=== PATIENT | male | born 1950 | race Caucasian/White ===

== ENCOUNTER 2016-07-12 13:10 | Inpatient (IN) | payer OTHER ==
[2016-07-12 14:23] VITALS: BMI 22.0
--- NOTE | 2016-07-12 16:39 | HP ---
COWS - Scale Resting Pulse: 0= [place] 80 or Below Sweatin= Chills/Flushing Restless Observation: 1= Difficult to Sit Still Pupil Size: 0= Normal to Room Light Bone or Joint Aches: 1= Mild Discomfort Runny Nose/ Eye Tearin= Runny Nose/Eyes GI Upset > 30mins: 3= Vomiting/Diarrhea Tremor Observation: 2= Slight Tremor Visible Yawning Observation: 0= None Anxiety or Irritability: 2=Irritable/Anxious Goose Flesh Skin: 3=Piloerection COWS Score: 15 CIWA Score - CIWA Score Nausea/Vomitin Muscle Tremors: 4-Moderate,w/Arms Extend Anxiety: 4-Mod. 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 Loss EENT: reports: Dental Problems (full upper partial lower - adhesive) Respiratory: reports: No Symptoms reported Cardiac: reports: No Symptoms Reported GI: reports: Diarrhea, Nausea, Poor Appetite, Poor Fluid Intake, Vomiting, Abdominal cramping : reports: No Symptoms Reported Musculoskeletal: reports: Back Pain, Joint Pain, Muscle Pain, Neck Pain Integumentary: reports: Change in Color (legs iv opiate) Neuro: reports: Tremors Endocrine: reports: Intolerance to Cold Hematology: reports: No Symptoms Reported Psychiatric: reports: Judgement Intact, Mood/Affect Appropiate Other Systems: Reviewed and Negative Patient History - Patient Medical History Hx Anemia: No Hx Asthma: No Hx Chronic Obstructive Pulmonary Disease (COPD): No Hx Cancer: No Hx Cardiac Disorders: No Hx Congestive Heart Failure: No Hx Hypertension: No Hx Hypercholesterolemia: No Hx Pacemaker: No HX Cerebrovascular Accident: No Hx Seizures: No Hx Dementia: No Hx Diabetes: No Hx Gastrointestinal Disorders: Yes (esophageal ulcer repaired 2006) Hx Liver Disease: No Hx Genitourinary Disorders: No Hx Sexually Transmitted Disorders: No Hx Renal Disease (ESRD): No Hx Thyroid Disease: No Hx Human Immunodeficiency Virus (HIV): No Hx Hepatitis C: Yes (treated) Hx Depression: No Hx Suicide Attempt: No Hx Bipolar Disorder: No Hx Schizophrenia: No - Patient Surgical History Past Surgical History: Yes Hx Neurologic Surgery: No Hx Cataract Extraction: No Hx Cardiac Surgery: No Hx Lung Surgery: No Hx Breast Surgery: No Hx Breast Biopsy: No Hx Abdominal Surgery: Yes (esophageal ulcer repaired 2006) Hx Appendectomy: Yes (25 years ago) Hx Cholecystectomy: Yes (2011) Hx Genitourinary Surgery: No Hx Orthopedic Surgery: No Anesthesia Reaction: No - PPD History Previous Implant?: Yes Documented Results: Negative w/o proof Implanted On Prior [facility] Admission?: No PPD to be Administered?: Yes - Smoking Cessation Smoking history: Current every day smoker Have you smoked in the past 12 months: Yes Aproximately how many cigarettes per day: 20 Cigars Per Day: 0 Hx Chewing Tobacco Use: No Initiated information on smoking cessation: Yes 'Breaking Loose' booklet given: 07/12/16 - Substance & Tx. History Hx Alcohol Use: No Hx Substance Use: Yes Substance Use Type: Heroin, Opiates, Tranquilizers - Substances Abused Heroin Route: Injection Frequency: Daily Amount used: 10 BAGS Age of first use: 40 Date of Last Use: 07/11/16 Alprazolam (Xanax) Route: Oral Frequency: Daily Amount used: 2MG Age of first use: 55 Date of Last Use: 07/11/16 Benzodiazepine (Klonopin) Route: Oral Frequency: Daily Amount used: 2MG Age of first use: 55 Date of Last Use: 07/11/[address] METHADONE Route: Oral Frequency: 3-6 times per week Amount used: 40 MG Age of first use: 40 Date of Last Use: 07/10/16 Family Disease History - Family Disease History Family Disease History: CA: Mother (), Other: Father () Other Family History: only child Admission Physical Exam S - Vital Signs Vital Signs: Vital Signs - 24 hr 07/12/16 14:22 Temperature 98.7 F Pulse Rate 61 Respiratory 18 Rate Blood Pressure 108/67 - Physical General Appearance: Yes: Appropriately Dressed, Mild Distress, Thin, Tremorous, Irritable, Sweating, Anxious HEENTM: Yes: Hearing grossly Normal, Normal ENT Inspection, Normocephalic, Normal Voice, Other (denture) Respiratory: Yes: Chest Non-Tender, Labored Respiration, No Respiratory Distress , No Accessory Muscle Use, Rhonchi, Wheezing, Hyperresonant Neck: Yes: Supple, Trachea in good position Breast: Yes: Breasts Symetrical Cardiology: Yes: Regular Rhythm, Regular Rate, S1, S2 Abdominal: Yes: Non Tender, Soft Genitourinary: Yes: Within Normal Limits Back: Yes: Normal Inspection Musculoskeletal: Yes: full range of Motion, Gait Steady, Back pain, Muscle Pain Extremities: Yes: Normal Range of Motion, Non-Tender, Tremors, Other (legs iv heroin) Neurological: Yes: Alert, Motor Strength 5/5, Normal Mood/Affect, Normal Response Integumentary: Yes: Warm, Track Hodges Lymphatic: Yes: Within Normal Limits - Diagnostic (1) Opioid dependence with withdrawal Current Visit: Yes Status: Acute (2) Sedative, hypnotic or anxiolytic dependence with withdrawal, uncomplicated Current Visit: Yes Status: Acute (3) Vomiting Current Visit: Yes Status: Acute Qualifiers: Vomiting type: unspecified Vomiting Intractability: intractable Nausea presence: with nausea Qualified Code(s): R11.2 - Nausea with vomiting, unspecified (4) Nicotine dependence Current Visit: Yes Status: Acute Qualifiers: Nicotine product type: cigarettes Substance use status: uncomplicated Qualified Code(s): F17.210 - Nicotine dependence, cigarettes, uncomplicated (5) Wears dentures Current Visit: Yes Status: Acute (6) Asthma Current Visit: Yes Status: Acute Qualifiers: Asthma severity: mild intermittent Asthma complication type: with status asthmaticus Qualified Code(s): J45.22 - Mild intermittent asthma with status asthmaticus (7) Weight loss Current Visit: Yes Status: Acute (8) Bronchitis Current Visit: Yes Status: Acute (9) History of cholecystectomy Current Visit: Yes Status: Resolved (10) History of appendectomy Current Visit: Yes Status: Resolved (11) History of esophageal surgery Current Visit: Yes Status: Resolved (12) Hepatitis C antibody test positive Current Visit: Yes Status: Acute Cleared for Admission [facility] - Detox or Rehab [facility] Level of Care: Medically Managed Detox Regimen/Protocol: Methadone/Valium [facility] Breath Alcohol Content Breath Alcohol Content: 0 Urine Drug Screen - Results Drug Screen Negative: No Urine Drug Screen Results: OPI-Opiates, BZO-Benzodiazepines, MTD-Methadone, OXY- Oxycodone
[2016-07-12] MEDS ORDERED: diazePAM 5 MG TABLET PO ONE (16:45)
[2016-07-12] MEDS ORDERED: MENTHOL/PHENOL 1 EACH UD MM PRN (16:45)
[2016-07-12] MEDS ORDERED: ACETAMINOPHEN 325 MG TABLET (FP) PO PRN (16:45)
[2016-07-12] MEDS ORDERED: MAG HYDROX/AL HYDROX/SIMETH 30 ML UNIT-DOSE CUP PO PRN (16:45)
[2016-07-12] MEDS ORDERED: MAGNESIUM CITRATE 300 ML BOTTLE PO PRN (16:45)
[2016-07-12] MEDS ORDERED: diphenhydrAMINE HCL 50 MG CAPSULE PO PRN (16:45)
[2016-07-12] MEDS ORDERED: LOPERAMIDE HCL 2 MG CAPSULE PO PRN (16:45)
[2016-07-12] MEDS ORDERED: guaiFENesin/D-METHORPHAN HB 10 ML UNIT-DOSE CUPS PO PRN (16:45)
[2016-07-12] MEDS ORDERED: IBUPROFEN 400 MG TABLET (FP) PO PRN (16:45)
[2016-07-12] MEDS ORDERED: P-EPHED 60MG/TRIPROLIDI 2.5MG TABLET PO PRN (16:45)
[2016-07-12] MEDS ORDERED: MAGNESIUM HYDROX 2400MG/30ML ORAL SUSPENSION 30 ML CUP PO PRN (16:45)
[2016-07-12] MEDS ORDERED: ONDANSETRON *ODT* 4 MG TABLET SL PRN (16:48)
[2016-07-12] MEDS ORDERED: ALBUTEROL SO4 2.5/IPRATROPIUM 0.5 INH SOL 3 ML VIAL.NEB. NEB PRN (17:28)
[2016-07-12] MEDS ORDERED: METHADONE HCL 10 MG TABLET (FOR DETOX USE ONLY) PO ONE ×2 (18:30→23:00)
[2016-07-12] MEDS: NICOTINE POLACRILEX 2 MG GUM BC PRN ×2 (19:50→22:19)
[2016-07-12] MEDS: BUDESONIDE/FORMETEROL FUMARATE 80/4.5 mcg INHALER IH SCH (22:15)
[2016-07-12] MEDS: THIAMINE HCL 100 MG TABLET (FP) PO SCH (22:15)
[2016-07-12] MEDS: diazePAM 5 MG TABLET PO SCH (22:16)
[2016-07-12 23:14] LABS: URINE APPEARANCE CLEAR; URINE BILIRUBIN NEGATIVE (NEGATIVE); URINE BLOOD NEGATIVE (NEGATIVE); URINE COLOR YELLOW; URINE GLUCOSE (UA) NEGATIVE (NEGATIVE); URINE KETONE NEGATIVE (NEGATIVE); URINE LEUK ESTERASE NEGATIVE (NEGATIVE); URINE NITRITE NEGATIVE (NEGATIVE); URINE PROTEIN NEGATIVE (NEGATIVE); URINE UROBILINOGEN NEGATIVE E.U./dl (0.2-1.0)
[2016-07-13] MEDS: diazePAM 5 MG TABLET PO SCH ×3 (05:31→22:14)
[2016-07-13] MEDS: CYCLOBENZAPRINE HCL 10 MG TABLET (FP) PO PRN ×3 (05:31→22:16)
[2016-07-13] MEDS: NICOTINE POLACRILEX 2 MG GUM BC PRN ×5 (07:26→20:54)
[2016-07-13] MEDS ORDERED: METHADONE HCL 10 MG TABLET (FOR DETOX USE ONLY) PO SCH (10:00)
[2016-07-13] MEDS: diazePAM 5 MG TABLET PO PRN ×2 (10:11→15:26)
[2016-07-13] MEDS: PRENATAL VITAMINS W/ FOLIC ACID TABLET (FP) PO SCH (10:11)
[2016-07-13] MEDS: BUDESONIDE/FORMETEROL FUMARATE 80/4.5 mcg INHALER IH SCH ×2 (10:12→22:14)
[2016-07-13] MEDS: NICOTINE 21 MG/24 HOURS TOPICAL PATCH TD SCH (10:12)
[2016-07-13 10:25] LABS: MCH 31.4 pg (25.7-33.7); MCHC 33.5 g/dl (32.0-35.9); MEAN CELL VOLUME 93.7 fl (80-96); MEAN PLT VOLUME 8.3 fl (7.5-11.1); PLATELET COUNT 231 K/MM3 (134-434); WHITE BLOOD COUNT 9.8 K/mm3 (4.0-10.0)
[2016-07-13 11:05] LABS: ALBUMIN 3.7 g/dl (3.4-5.0); ALK PHOS 55 U/L (45-117); ANION GAP 7 (8-16); BILIRUBIN,TOTAL 0.6 mg/dL (0.2-1.0); CO2 25 mmol/L (21-32); CREATININE 1.1 mg/dL (0.7-1.3); GLUCOSE,RANDOM 110 mg/dL (74-106); SGOT/AST 15 U/L (15-37); SGPT/ALT 21 U/L (12-78); TOT PROT 7.2 g/dl (6.4-8.2)
--- NOTE | 2016-07-13 11:14 | PN ---
[facility] CIWA - CIWA Score Nausea/Vomitin-No Nausea/No Vomiting Muscle Tremors: 4-Moderate,w/Arms Extend Anxiety: 4-Mod. Anxious/Guarded Agitation: 4-Moderately Restless Paroxysmal Sweats: 1-Minimal Palms Moist Orientation: 0-Oriented Tacttile Disturbances: 3-Moderate Itch/Numb/Burn Auditory Disturbances: 0-None Visual Disturbances: 0-None Headache: 0-None Present CIWA-Ar Total Score: 16 S COWS - Scale Resting Pulse: 0= [place] 80 or Below Sweatin= Chills/Flushing Restless Observation: 3= Extraneous Movement Pupil Size: 2= Moderately Dilated Bone or Joint Aches: 4=Acute Joint/Muscle Pain Runny Nose/ Eye Tearin= Nasal Congestion GI Upset > 30mins: 1= Stomach Cramp Tremor Observation of Outstretched Hands: 2= Slight Tremor Visible Yawning Observation: 2= >3x During Session Anxiety or Irritability: 2=Irritable/Anxious Goose Flesh Skin: 0=Smooth Skin COWS Score: 18 [facility] Progress Note (SOAP) Subjective: ANXIETY,SWEATS,TREMORS,FATIGUE. Objective: 07/13/16 11:13 Vital Signs Temperature 96.9 F L 07/13/16 09:48 Pulse Rate 58 L 07/13/16 09:48 Respiratory Rate 18 07/13/16 09:48 Blood Pressure 100/66 07/13/16 09:48 O2 Sat by Pulse Oximetry (%) Laboratory Last Values WBC 9.8 K/mm3 (4.0-10.0) 07/13/16 06:00 RBC 4.72 M/mm3 (4.00-5.60) 07/13/16 06:00 Hgb 14.8 GM/dL (11.7-16.9) 07/13/16 06:00 Hct 44.2 % (35.4-49) 07/13/16 06:00 MCV 93.7 fl (80-96) 07/13/16 06:00 MCHC 33.5 g/dl (32.0-35.9) 07/13/16 06:00 RDW 14.0 % (11.9-15.9) 07/13/16 06:00 Plt Count 231 K/MM3 (134-434) 07/13/16 06:00 MPV 8.3 fl (7.5-11.1) 07/13/16 06:00 Sodium 138 mmol/L (136-145) 07/13/16 06:00 Potassium 4.8 mmol/L (3.5-5.1) 07/13/16 06:00 Chloride 106 mmol/L (98-107) 07/13/16 06:00 Carbon Dioxide 25 mmol/L (21-32) 07/13/16 06:00 Anion Gap 7 (8-16) L 07/13/16 06:00 BUN 22 mg/dL (7-18) H 07/13/16 06:00 Creatinine 1.1 mg/dL (0.7-1.3) 07/13/16 06:00 Creat Clearance w eGFR > 60 (>60) 07/13/16 06:00 Random Glucose 110 mg/dL (74-106) H 07/13/16 06:00 Calcium 9.0 mg/dL (8.5-10.1) 07/13/16 06:00 Total Bilirubin 0.6 mg/dL (0.2-1.0) 07/13/16 06:00 AST 15 U/L (15-37) 07/13/16 06:00 ALT 21 U/L (12-78) 07/13/16 06:00 Alkaline Phosphatase 55 U/L (45-117) 07/13/16 06:00 Total Protein 7.2 g/dl (6.4-8.2) 07/13/16 06:00 Albumin 3.7 g/dl (3.4-5.0) 07/13/16 06:00 Urine Color Yellow 07/12/16 22:40 Urine Appearance Clear 07/12/16 22:40 Urine pH 5.0 (5.0-8.0) 07/12/16 22:40 Ur Specific [place] 1.021 (1.001-1.035) 07/12/16 22:40 Urine Protein Negative (NEGATIVE) 07/12/16 22:40 Urine Glucose (UA) Negative (NEGATIVE) 07/12/16 22:40 Urine Ketones Negative (NEGATIVE) 07/12/16 22:40 Urine Blood Negative (NEGATIVE) 07/12/16 22:40 Urine Nitrite Negative (NEGATIVE) 07/12/16 22:40 Urine Bilirubin Negative (NEGATIVE) 07/12/16 22:40 Urine Urobilinogen Negative E.U./dl (0.2-1.0) 07/12/16 22:40 Ur Leukocyte Esterase Negative (NEGATIVE) 07/12/16 22:40 Assessment: 07/13/16 11:13 WITHDRAWAL SX Plan: CONTINUE DETOX
--- NOTE | 2016-07-13 12:35 | EKG ---
Test Reason : Blood Pressure : / mmHG Vent. Rate : 046 BPM Atrial Rate : 046 BPM P-R Int : 156 ms QRS Dur : 086 ms QT Int : 474 ms P-R-T Axes : 051 -05 019 degrees QTc Int : 414 ms SINUS BRADYCARDIA SEPTAL INFARCT , AGE UNDETERMINED NONSPECIFIC ST ABNORMALITY NO PREVIOUS ECGS AVAILABLE Confirmed by MAT HERNANDEZ MD ([id number]) on 07/13/2016 12:35:23 PM Referred By: Confirmed By:MAT HERNANDEZ MD
[2016-07-13] MEDS: THIAMINE HCL 100 MG TABLET (FP) PO SCH (22:15)
[2016-07-14] MEDS: diazePAM 5 MG TABLET PO SCH ×2 (10:29→22:18)
[2016-07-14] MEDS: BUDESONIDE/FORMETEROL FUMARATE 80/4.5 mcg INHALER IH SCH ×2 (10:29→22:17)
[2016-07-14] MEDS: PRENATAL VITAMINS W/ FOLIC ACID TABLET (FP) PO SCH (10:30)
[2016-07-14] MEDS: METHADONE HCL 5 MG TABLET (FOR DETOX USE ONLY) PO SCH (10:30)
[2016-07-14] MEDS: NICOTINE 21 MG/24 HOURS TOPICAL PATCH TD SCH (10:30)
[2016-07-14] MEDS: NICOTINE POLACRILEX 2 MG GUM BC PRN ×2 (10:32→19:32)
--- NOTE | 2016-07-14 16:47 | PN ---
[facility] CIWA - CIWA Score Nausea/Vomitin-Mild Nausea/No Vomiting Muscle Tremors: 3 Anxiety: 3 Agitation: 2 Paroxysmal Sweats: 2 Orientation: 0-Oriented Tacttile Disturbances: 0-None Auditory Disturbances: 0-None Visual Disturbances: 0-None Headache: 2-Mild CIWA-Ar Total Score: 13 [facility] Progress Note (SOAP) Objective: 07/14/16 16:47 Laboratory Tests 07/12/16 07/13/16 07/13/16 22:40 06:00 06:00 WBC 9.8 RBC 4.72 Hgb 14.8 Hct 44.2 MCV 93.7 MCHC 33.5 RDW 14.0 Plt Count 231 MPV 8.3 Sodium 138 Potassium 4.8 Chloride 106 Carbon Dioxide 25 Anion Gap 7 L BUN 22 H Creatinine 1.1 Creat Clearance w eGFR > 60 Random Glucose 110 H Calcium 9.0 Total Bilirubin 0.6 AST 15 ALT 21 Alkaline Phosphatase 55 Total Protein 7.2 Albumin 3.7 Urine Color Yellow Urine Appearance Clear Urine pH 5.0 Ur Specific [place] 1.021 Urine Protein Negative Urine Glucose (UA) Negative Urine Ketones Negative Urine Blood Negative Urine Nitrite Negative Urine Bilirubin Negative Urine Urobilinogen Negative Ur Leukocyte Esterase Negative RPR Titer 07/13/16 06:00 WBC RBC Hgb Hct MCV MCHC RDW Plt Count MPV Sodium Potassium Chloride Carbon Dioxide Anion Gap BUN Creatinine Creat Clearance w eGFR Random Glucose Calcium Total Bilirubin AST ALT Alkaline Phosphatase Total Protein Albumin Urine Color Urine Appearance Urine pH Ur Specific [place] Urine Protein Urine Glucose (UA) Urine Ketones Urine Blood Urine Nitrite Urine Bilirubin Urine Urobilinogen Ur Leukocyte Esterase RPR Titer Nonreactive Vital Signs - 24 hr 07/13/16 07/13/16 07/14/16 17:45 22:13 00:29 Temperature 97.0 F L 97 F L Pulse Rate 69 68 Respiratory 18 16 18 Rate Blood Pressure 99/62 96/62 07/14/16 07/14/16 07/14/16 03:30 06:35 09:42 Temperature 96.9 F L 96.7 F L Pulse Rate 61 61 51 L Respiratory 16 16 18 Rate Blood Pressure 96/68 116/67 07/14/16 14:19 Temperature 97.0 F L Pulse Rate 60 Respiratory 18 Rate Blood Pressure 99/61 Assessment: 07/14/16 16:47 ongoing withdrawal Plan: continue detox protocol
[2016-07-14] MEDS: THIAMINE HCL 100 MG TABLET (FP) PO SCH (22:18)
[2016-07-15] MEDS: diazePAM 5 MG TABLET PO PRN ×3 (05:30→16:43)
[2016-07-15] MEDS: ALBUTEROL SO4 6.7 GM HFA INHALER IH PRN (05:31)
[2016-07-15] MEDS: NICOTINE POLACRILEX 2 MG GUM BC PRN ×4 (06:58→18:22)
[2016-07-15] MEDS ORDERED: ZOLPIDEM TARTRATE 5 MG TABLET PO PRN ×2 (09:14→10:56)
[2016-07-15] MEDS: METHADONE HCL 5 MG TABLET (FOR DETOX USE ONLY) PO SCH (10:22)
[2016-07-15] MEDS: PRENATAL VITAMINS W/ FOLIC ACID TABLET (FP) PO SCH (10:22)
[2016-07-15] MEDS: BUDESONIDE/FORMETEROL FUMARATE 80/4.5 mcg INHALER IH SCH ×2 (10:23→22:16)
[2016-07-15] MEDS: diazePAM 5 MG TABLET PO SCH ×2 (10:23→22:15)
[2016-07-15] MEDS: NICOTINE 21 MG/24 HOURS TOPICAL PATCH TD SCH (10:51)
--- NOTE | 2016-07-15 15:52 | PN ---
S Progress Note (SOAP) Subjective: Anxiety, restless, interrupted sleep (wants ambien 10mg as benadryl doesn't work ), vomiting and diarrhea once this morning Objective: 07/15/16 15:51 Last Vital Signs Temp Pulse Resp BP Pulse Ox 96.5 F L 66 20 108/75 07/15/16 13:44 07/15/16 13:44 07/15/16 13:44 07/15/16 13:44 Laboratory Tests 07/12/16 07/13/16 07/13/16 22:40 06:00 06:00 WBC 9.8 RBC 4.72 Hgb 14.8 Hct 44.2 MCV 93.7 MCHC 33.5 RDW 14.0 Plt Count 231 MPV 8.3 Sodium 138 Potassium 4.8 Chloride 106 Carbon Dioxide 25 Anion Gap 7 L BUN 22 H Creatinine 1.1 Creat Clearance w eGFR > 60 Random Glucose 110 H Calcium 9.0 Total Bilirubin 0.6 AST 15 ALT 21 Alkaline Phosphatase 55 Total Protein 7.2 Albumin 3.7 Urine Color Yellow Urine Appearance Clear Urine pH 5.0 Ur Specific [place] 1.021 Urine Protein Negative Urine Glucose (UA) Negative Urine Ketones Negative Urine Blood Negative Urine Nitrite Negative Urine Bilirubin Negative Urine Urobilinogen Negative Ur Leukocyte Esterase Negative RPR Titer 07/13/16 06:00 WBC RBC Hgb Hct MCV MCHC RDW Plt Count MPV Sodium Potassium Chloride Carbon Dioxide Anion Gap BUN Creatinine Creat Clearance w eGFR Random Glucose Calcium Total Bilirubin AST ALT Alkaline Phosphatase Total Protein Albumin Urine Color Urine Appearance Urine pH Ur Specific [place] Urine Protein Urine Glucose (UA) Urine Ketones Urine Blood Urine Nitrite Urine Bilirubin Urine Urobilinogen Ur Leukocyte Esterase RPR Titer Nonreactive Labs noted Assessment: 07/15/16 15:52 Withdrawal symptoms Plan: Continue detox
[2016-07-15] MEDS: THIAMINE HCL 100 MG TABLET (FP) PO SCH (22:15)
[2016-07-16] MEDS: CYCLOBENZAPRINE HCL 10 MG TABLET (FP) PO PRN (05:21)
[2016-07-16] MEDS: ALBUTEROL SO4 6.7 GM HFA INHALER IH PRN (05:22)
[2016-07-16] MEDS: NICOTINE POLACRILEX 2 MG GUM BC PRN ×4 (05:23→15:17)
[2016-07-16] MEDS ORDERED: diazePAM 5 MG TABLET PO SCH (10:00)
[2016-07-16] MEDS ORDERED: METHADONE HCL 10 MG TABLET (FOR DETOX USE ONLY) PO SCH (10:00)
[2016-07-16] MEDS: BUDESONIDE/FORMETEROL FUMARATE 80/4.5 mcg INHALER IH SCH ×2 (10:16→22:06)
[2016-07-16] MEDS: NICOTINE 21 MG/24 HOURS TOPICAL PATCH TD SCH (10:17)
[2016-07-16] MEDS: PRENATAL VITAMINS W/ FOLIC ACID TABLET (FP) PO SCH (10:17)
--- NOTE | 2016-07-16 14:03 | PN ---
[facility] Progress Note (SOAP) Subjective: SWEATING,INTERRUPTED SLEEP,RESTLESS. Objective: 07/16/16 14:02 Vital Signs - 8 hr 07/16/16 07/16/16 06:43 10:30 Temperature 97.2 F L 96 F L Pulse Rate 61 78 Respiratory 16 20 Rate Blood Pressure 103/70 97/67 Laboratory Tests 07/12/16 07/13/16 07/13/16 22:40 06:00 06:00 WBC 9.8 RBC 4.72 Hgb 14.8 Hct 44.2 MCV 93.7 MCHC 33.5 RDW 14.0 Plt Count 231 MPV 8.3 Sodium 138 Potassium 4.8 Chloride 106 Carbon Dioxide 25 Anion Gap 7 L BUN 22 H Creatinine 1.1 Creat Clearance w eGFR > 60 Random Glucose 110 H Calcium 9.0 Total Bilirubin 0.6 AST 15 ALT 21 Alkaline Phosphatase 55 Total Protein 7.2 Albumin 3.7 Urine Color Yellow Urine Appearance Clear Urine pH 5.0 Ur Specific [place] 1.021 Urine Protein Negative Urine Glucose (UA) Negative Urine Ketones Negative Urine Blood Negative Urine Nitrite Negative Urine Bilirubin Negative Urine Urobilinogen Negative Ur Leukocyte Esterase Negative RPR Titer 07/13/16 06:00 WBC RBC Hgb Hct MCV MCHC RDW Plt Count MPV Sodium Potassium Chloride Carbon Dioxide Anion Gap BUN Creatinine Creat Clearance w eGFR Random Glucose Calcium Total Bilirubin AST ALT Alkaline Phosphatase Total Protein Albumin Urine Color Urine Appearance Urine pH Ur Specific [place] Urine Protein Urine Glucose (UA) Urine Ketones Urine Blood Urine Nitrite Urine Bilirubin Urine Urobilinogen Ur Leukocyte Esterase RPR Titer Nonreactive LABS NOTED Assessment: 07/16/16 14:02 WITHDRAWAL SX. Plan: CONTINUE DETOX
[2016-07-16] MEDS ORDERED: diphenhydrAMINE HCL 50 MG CAPSULE PO SCH (22:00)
[2016-07-16] MEDS: THIAMINE HCL 100 MG TABLET (FP) PO SCH (22:06)
[2016-07-17] MEDS ORDERED: METHADONE HCL 5 MG TABLET (FOR DETOX USE ONLY) PO SCH (06:00)
[2016-07-17 09:30] VITALS: BP 105/72; PULSE 71; TEMP 96.4
--- NOTE | 2016-07-17 10:11 | DS ---
[facility] Detox Discharge Summary Admission Date: 07/12/16 Discharge Date: 07/17/16 - History Present History: Opioid Dependence, Sedative Dependence Additional Comments: DETOX COMPLETED Pertinent Past History: ASTHMA BRONCHITIS HEP C - Physical Exam Results Vital Signs: Vital Signs Temperature 96.4 F L 07/17/16 09:29 Pulse Rate 71 07/17/16 09:29 Respiratory Rate 18 07/17/16 09:29 Blood Pressure 105/72 07/17/16 09:29 O2 Sat by Pulse Oximetry (%) Pertinent Admission Physical Exam Findings: WITHDRAWAL SX - Treatment Hospital Course: Detox Protocol Followed, Detoxed Safely, Responded well, Discharged Condition Good - Medication Discharge Medications: Ambulatory Orders NK [No Known Home Medication] 07/12/16 - Diagnosis (1) Asthma Current Visit: Yes Status: Chronic Qualifiers: Asthma severity: mild intermittent Asthma complication type: with status asthmaticus Qualified Code(s): J45.22 - Mild intermittent asthma with status asthmaticus (2) Bronchitis Current Visit: Yes Status: Suspected (3) Hepatitis C antibody test positive Current Visit: Yes Status: Chronic (4) Nicotine dependence Current Visit: Yes Status: Chronic Qualifiers: Nicotine product type: cigarettes Substance use status: uncomplicated Qualified Code(s): F17.210 - Nicotine dependence, cigarettes, uncomplicated (5) Opioid dependence with withdrawal Current Visit: Yes Status: Acute (6) Sedative, hypnotic or anxiolytic dependence with withdrawal, uncomplicated Current Visit: Yes Status: Acute - AMA Did Patient Leave Against Medical Advice: No
[2016-07-17] MEDS: BUDESONIDE/FORMETEROL FUMARATE 80/4.5 mcg INHALER IH SCH (10:18)
[2016-07-17] MEDS: PRENATAL VITAMINS W/ FOLIC ACID TABLET (FP) PO SCH (10:18)
[2016-07-17] MEDS: NICOTINE 21 MG/24 HOURS TOPICAL PATCH TD SCH (10:19)
== END 2016-07-17 12:50 | disposition home or self-care (01) | DRG 897 ==
LOC: YASAS 13:10 → Y3N 18:16
PROVIDERS: ADMIT Internal Medicine; ATTEND Internal Medicine
PROC: HZ2ZZZZ Detoxification Services for Substance Abuse Treatment (ICD-10-PCS; principal; 2016-07-12)
DX: F11.23 Opioid dependence with withdrawal (principal); J45.22 Mild intermittent asthma with status asthmaticus; F13.230 Sedative, hypnotic or anxiolytic dependence with withdrawal, uncomplicated; F17.210 Nicotine dependence, cigarettes, uncomplicated; J40 Bronchitis, not specified as acute or chronic; B18.2 Chronic viral hepatitis C; R11.2 Nausea with vomiting, unspecified; Z97.2 Presence of dental prosthetic device (complete) (partial); Z90.89 Acquired absence of other organs; Z87.898 Personal history of other specified conditions; Z98.890 Other specified postprocedural states
CPT/HCPCS: 36415; 80053; 81003; 85027; 86593; 93005; 93010

== ENCOUNTER 2018-04-11 13:38 | Inpatient (IN) | payer OTHER ==
--- NOTE | 2018-04-11 18:16 | HP ---
COWS - Scale Resting Pulse: 0= [place] 80 or Below Restless Observation: 0= Sits Still Pupil Size: 0= Normal to Room Light Bone or Joint Aches: 0= None Runny Nose/ Eye Tearin= None GI Upset > 30mins: 0= None Tremor Observation: 0= None Yawning Observation: 0= None Anxiety or Irritability: 1=Feels Anxious/Irritable Goose Flesh Skin: 0=Smooth Skin (took Methadone illicitly today) Admission [facility] - HPI Allergies/Adverse Reactions: Allergies Allergy/AdvReac Type Severity Reaction Status Date / Time No Known Allergies Allergy Verified 04/11/18 17:14 History of Present Illness: pt here requesting detox from opiate use , reports 3-4 bags/day IVDU in legs " my arms are exhausted " , needles from pharmacy , denies sharing , denies re- using, + abscess " a long time ago " , denies OD . latest use of heroin yesterday , first age of use 18 , prior MMTP stopped 5 yrs ago , used to go x 15 years " I got sick of going every day " - reports sobriety w/ MMTP . benzo : klonopin , not daily , q 3-4 days pmhx : denies pshx : appy , froylan , gastric ulcer psych : denies tobacco use : 1/2 ppd . requesting nrt w/ gum . Exam Limitations: No Limitations - Ebola screening Have you traveled outside of the country in the last 21 days: No (N) Have you had contact with anyone from an Ebola affected area: No Have you been sick,other than usual withdrawal symptoms: No Do you have a fever: No - Review of Systems Constitutional: No Symptoms Reported EENT: reports: No Symptoms Reported (glasses), Other Respiratory: reports: No Symptoms reported Cardiac: reports: No Symptoms Reported GI: reports: No Symptoms Reported : reports: No Symptoms Reported Musculoskeletal: reports: No Symptoms Reported Integumentary: reports: No Symptoms Reported Neuro: reports: No Symptoms reported Hematology: reports: No Symptoms Reported Psychiatric: reports: No Sypmtoms Reported, Judgement Intact, Orientated x3 Patient History - Patient Medical History Hx Anemia: No Hx Asthma: No Hx Chronic Obstructive Pulmonary Disease (COPD): No Hx Cancer: No Hx Cardiac Disorders: No Hx Congestive Heart Failure: No Hx Hypertension: No Hx Hypercholesterolemia: No Hx Pacemaker: No HX Cerebrovascular Accident: No Hx Seizures: No Hx Dementia: No Hx Diabetes: No Hx Gastrointestinal Disorders: No Hx Liver Disease: No Hx Genitourinary Disorders: No Hx Sexually Transmitted Disorders: No Hx Renal Disease (ESRD): No Hx Thyroid Disease: No Hx Human Immunodeficiency Virus (HIV): No Hx Hepatitis C: Yes (treated) Hx Depression: Yes Hx Suicide Attempt: No Hx Bipolar Disorder: No Hx Schizophrenia: No - Patient Surgical History Past Surgical History: Yes Hx Neurologic Surgery: No Hx Cataract Extraction: No Hx Cardiac Surgery: No Hx Lung Surgery: No Hx Breast Surgery: No Hx Breast Biopsy: No Hx Abdominal Surgery: Yes (esophageal ulcer repaired 2006) Hx Appendectomy: Yes (25 years ago) Hx Cholecystectomy: Yes (2011) Hx Genitourinary Surgery: No Hx Orthopedic Surgery: No Anesthesia Reaction: No - PPD History Previous Implant?: Yes Documented Results: Negative w/o proof Implanted On Prior [facility] Admission?: No Date: 07/14/16 - Smoking Cessation Smoking history: Current every day smoker Have you smoked in the past 12 months: Yes Aproximately how many cigarettes per day: 10 Cigars Per Day: 0 Hx Chewing Tobacco Use: No Initiated information on smoking cessation: No - Substances Abused Heroin Route: Injection Frequency: Daily Amount used: 3 bags Age of first use: 18 Date of Last Use: 04/10/18 Benzodiazepine (Klonopin) Route: Oral Frequency: 1-2 times per week Amount used: 4mg Age of first use: 66 Date of Last Use: 04/10/18 Family Disease History - Family Disease History Family Disease History: CA: Mother ( , ovarian CA), Other: Father ( , MVA ) Admission Physical Exam S - Vital Signs Vital Signs: Vital Signs - 24 hr 04/11/18 16:54 Temperature 98.5 F Pulse Rate 55 L Respiratory 20 Rate Blood Pressure 90/56 L - Physical General Appearance: Yes: Nourished, Appropriately Dressed, Other (evasive) HEENTM: Yes: EOMI, Normocephalic, Normal Voice, CODY, Pharynx Normal, Other ( dentures - upper full, lower partial decreased hearing) Respiratory: Yes: Lungs Clear, Normal Breath Sounds, No Respiratory Distress, No Accessory Muscle Use, Other (thoracic scoliosis) Neck: Yes: Within Normal Limits, No masses,lesions,Nodules, Trachea in good position Breast: Yes: Breast Exam Deferred Cardiology: Yes: Within Normal Limits, Regular Rhythm, Regular Rate Abdominal: Yes: Normal Bowel Sounds, Non Tender, Flat, Soft, Surgical Scar Genitourinary: Yes: Within Normal Limits Back: Yes: Other (thoracic kypho scoliosis ,) Musculoskeletal: Yes: Gait Steady, Pelvis Stable Extremities: Yes: Normal Inspection, Normal Range of Motion, Non-Tender, Tremors Neurological: Yes: Within Normal Limits, Fully Oriented, Alert, Motor Strength 5 /5, Normal Mood/Affect, Normal Response Integumentary: Yes: Normal Color, Dry, Warm, Track Hodges - Diagnostic (1) Opioid dependence with withdrawal Current Visit: No Status: Acute (2) Sedative, hypnotic or anxiolytic dependence with withdrawal, uncomplicated Current Visit: No Status: Chronic (3) Nicotine dependence Current Visit: No Status: Chronic Qualifiers: Nicotine product type: cigarettes Substance use status: uncomplicated Qualified Code(s): F17.210 - Nicotine dependence, cigarettes, uncomplicated [facility] Breath Alcohol Content Breath Alcohol Content: 0 Urine Drug Screen - Results Drug Screen Negative: No Urine Drug Screen Results: OPI-Opiates, BZO-Benzodiazepines, MTD-Methadone
[2018-04-11] MEDS ORDERED: MAG HYDROX/AL HYDROX/SIMETH 30 ML UNIT-DOSE CUP PO PRN (18:25)
[2018-04-11] MEDS ORDERED: guaiFENesin/D-METHORPHAN HB 10 ML UNIT-DOSE CUPS PO PRN (18:25)
[2018-04-11] MEDS ORDERED: ACETAMINOPHEN 325 MG TABLET (FP) PO PRN (18:25)
[2018-04-11] MEDS ORDERED: P-EPHED 60MG/TRIPROLIDI 2.5MG TABLET PO PRN (18:25)
[2018-04-11] MEDS ORDERED: IBUPROFEN 400 MG TABLET (FP) PO PRN (18:25)
[2018-04-11] MEDS ORDERED: MENTHOL/PHENOL 1 EACH UD MM PRN (18:25)
[2018-04-11] MEDS ORDERED: MAGNESIUM HYDROX 2400MG/30ML ORAL SUSPENSION 30 ML CUP PO PRN (18:25)
[2018-04-11] MEDS ORDERED: MAGNESIUM CITRATE 300 ML BOTTLE PO PRN (18:25)
[2018-04-11] MEDS ORDERED: hydrOXYzine PAMOATE 50 MG CAPSULE (FP) PO PRN (18:29)
--- NOTE | 2018-04-11 20:37 | PN ---
[facility] Progress Note Note: Patient EKG shows marked sinus bradycardia. Alert and oriented. Denies CP/ Vertigo/SOB. No peripheral edema. Peripheral pulses (+). Plan; D/c vistaril. Monitor B/P and pulse q4h x 24 hours. Repeat EKG on 04/13 or as medically indicated.
[2018-04-11] MEDS ORDERED: METHADONE HCL 10 MG TABLET PO ONE (20:58)
[2018-04-11] MEDS: MELATONIN 5 MG TABLETS PO PRN (22:27)
[2018-04-11] MEDS: THIAMINE HCL 100 MG TABLET (FP) PO SCH (22:27)
[2018-04-11] MEDS: diazePAM 5 MG TABLET PO SCH (22:28)
[2018-04-11] MEDS ORDERED: METHADONE HCL 10 MG TABLET (FOR DETOX USE ONLY) PO ONE (23:00)
[2018-04-12 02:04] LABS: URINE APPEARANCE SLCLOUDY; URINE BILIRUBIN NEGATIVE (<2.0 mg/dL); URINE COLOR YELLOW; URINE GLUCOSE (UA) NEGATIVE (NEGATIVE); URINE KETONE NEGATIVE (NEGATIVE); URINE LEUK ESTERASE NEGATIVE (NEGATIVE); URINE NITRITE NEGATIVE (NEGATIVE); URINE PROTEIN NEGATIVE (NEGATIVE); URINE UROBILINOGEN NEGATIVE mg/dL (0.2-1.0)
[2018-04-12] MEDS: diazePAM 5 MG TABLET PO SCH ×3 (06:25→22:24)
[2018-04-12] MEDS ORDERED: METHADONE HCL 10 MG TABLET (FOR DETOX USE ONLY) PO SCH (10:00)
--- NOTE | 2018-04-12 10:35 | EKG ---
Test Reason : Blood Pressure : / mmHG Vent. Rate : 040 BPM Atrial Rate : 040 BPM P-R Int : 192 ms QRS Dur : 086 ms QT Int : 526 ms P-R-T Axes : 035 -19 022 degrees QTc Int : 428 ms MARKED SINUS BRADYCARDIA ABNORMAL ECG WHEN COMPARED WITH ECG OF 12-JUL-2016 19:16, CRITERIA FOR SEPTAL INFARCT ARE NO LONGER PRESENT NONSPECIFIC T WAVE ABNORMALITY NO LONGER EVIDENT IN ANTERIOR LEADS Confirmed by DAVID ESPARZA, MAT ([id number]) on 04/12/2018 10:34:45 AM Referred By: Confirmed By:MAT HERNANDEZ MD
[2018-04-12] MEDS: PRENATAL VITAMINS W/ FOLIC ACID TABLET (FP) PO SCH (10:45)
[2018-04-12] MEDS: diazePAM 5 MG TABLET PO PRN (10:47)
[2018-04-12 11:01] LABS: ALBUMIN 3.4 g/dl (3.4-5.0); ALK PHOS 45 U/L (45-117); ANION GAP 6 MMOL/L (8-16); BILIRUBIN,TOTAL 0.5 mg/dL (0.2-1); BLOOD UREA NITROGEN 23 mg/dL (7-18); CALCIUM 8.9 mg/dL (8.5-10.1); CHLORIDE 106 mmol/L (98-107); CO2 27 mmol/L (21-32); CREATININE 1.3 mg/dL (0.55-1.3); GLUCOSE,RANDOM 87 mg/dL (74-106); POTASSIUM 4.9 mmol/L (3.5-5.1); SGOT/AST 18 U/L (15-37); SGPT/ALT 20 U/L (13-61); SODIUM 139 mmol/L (136-145); TOT PROT 6.8 g/dl (6.4-8.2)
[2018-04-12 11:28] LABS: HEMATOCRIT 42.5 % (35.4-49); MCH 32.8 pg (25.7-33.7); MCHC 35.3 g/dl (32.0-35.9); MEAN CELL VOLUME 92.9 fl (80-96); MEAN PLT VOLUME 8.8 fl (7.5-11.1); PLATELET COUNT 147 K/MM3 (134-434); RBC 4.58 M/mm3 (4.00-5.60); WHITE BLOOD COUNT 5.1 K/mm3 (4.0-10.0)
--- NOTE | 2018-04-12 14:10 | PN ---
[facility] Progress Note (SOAP) Subjective: irritable, anxious, no sleep, body aches Objective: 04/12/18 14:10 Vital Signs Temperature 96.4 F L 04/12/18 10:41 Pulse Rate 55 L 04/12/18 10:41 Respiratory Rate 16 04/12/18 10:41 Blood Pressure 113/70 04/12/18 10:41 O2 Sat by Pulse Oximetry (%) Laboratory Last Values WBC 5.1 K/mm3 (4.0-10.0) 04/12/18 08:00 RBC 4.58 M/mm3 (4.00-5.60) 04/12/18 08:00 Hgb 15.0 GM/dL (11.7-16.9) 04/12/18 08:00 Hct 42.5 % (35.4-49) 04/12/18 08:00 MCV 92.9 fl (80-96) 04/12/18 08:00 MCH 32.8 pg (25.7-33.7) 04/12/18 08:00 MCHC 35.3 g/dl (32.0-35.9) 04/12/18 08:00 RDW 14.0 % (11.9-15.9) 04/12/18 08:00 Plt Count 147 K/MM3 (134-434) D 04/12/18 08:00 MPV 8.8 fl (7.5-11.1) 04/12/18 08:00 Sodium 139 mmol/L (136-145) 04/12/18 08:00 Potassium 4.9 mmol/L (3.5-5.1) 04/12/18 08:00 Chloride 106 mmol/L (98-107) 04/12/18 08:00 Carbon Dioxide 27 mmol/L (21-32) 04/12/18 08:00 Anion Gap 6 MMOL/L (8-16) L 04/12/18 08:00 BUN 23 mg/dL (7-18) H 04/12/18 08:00 Creatinine 1.3 mg/dL (0.55-1.3) 04/12/18 08:00 Creat Clearance w eGFR 55.06 (>60) 04/12/18 08:00 Random Glucose 87 mg/dL (74-106) 04/12/18 08:00 Calcium 8.9 mg/dL (8.5-10.1) 04/12/18 08:00 Total Bilirubin 0.5 mg/dL (0.2-1) 04/12/18 08:00 AST 18 U/L (15-37) 04/12/18 08:00 ALT 20 U/L (13-61) 04/12/18 08:00 Alkaline Phosphatase 45 U/L (45-117) 04/12/18 08:00 Total Protein 6.8 g/dl (6.4-8.2) 04/12/18 08:00 Albumin 3.4 g/dl (3.4-5.0) 04/12/18 08:00 Urine Color Yellow 04/11/18 23:49 Urine Appearance Slcloudy 04/11/18 23:49 Urine pH 6.0 (5.0-8.0) 04/11/18 23:49 Ur Specific [place] 1.018 (1.010-1.035) 04/11/18 23:49 Urine Protein Negative (NEGATIVE) 04/11/18 23:49 Urine Glucose (UA) Negative (NEGATIVE) 04/11/18 23:49 Urine Ketones Negative (NEGATIVE) 04/11/18 23:49 Urine Blood Negative (NEGATIVE) 04/11/18 23:49 Urine Nitrite Negative (NEGATIVE) 04/11/18 23:49 Urine Bilirubin Negative (<2.0 mg/dL) 04/11/18 23:49 Urine Urobilinogen Negative mg/dL (0.2-1.0) 04/11/18 23:49 Ur Leukocyte Esterase Negative (NEGATIVE) 04/11/18 23:49 RPR Titer Nonreactive (NONREACTIVE) 04/12/18 08:00 Aox3, agitated, irritable no adventitious breath sounds full ROM ambulating in the unit Assessment: 04/12/18 14:11 withdrawal sx Plan: increase fluids continue detox insomnia : psych consult continue to monitor
--- NOTE | 2018-04-12 14:13 | PN ---
[facility] CIWA - CIWA Score Nausea/Vomitin-No Nausea/No Vomiting Muscle Tremors: 3 Anxiety: 5 Agitation: 4-Moderately Restless Paroxysmal Sweats: 2 Orientation: 0-Oriented Tacttile Disturbances: 0-None Auditory Disturbances: 0-None Visual Disturbances: 0-None Headache: 0-None Present CIWA-Ar Total Score: 14 [facility] COWS - Scale Resting Pulse: 0= [place] 80 or Below Sweatin= Chills/Flushing Restless Observation: 3= Extraneous Movement Pupil Size: 0= Normal to Room Light Bone or Joint Aches: 1= Mild Discomfort Runny Nose/ Eye Tearin= Runny Nose/Eyes GI Upset > 30mins: 0= None Tremor Observation of Outstretched Hands: 1= Tremor [place], Not Seen Yawning Observation: 1= 1-2x During Session Anxiety or Irritability: 4=Extreme Anxiety Goose Flesh Skin: 0=Smooth Skin COWS Score: 13
[2018-04-12] MEDS: MELATONIN 5 MG TABLETS PO PRN (22:24)
[2018-04-12] MEDS: THIAMINE HCL 100 MG TABLET (FP) PO SCH (22:24)
[2018-04-12] MEDS: NICOTINE POLACRILEX 2 MG GUM BC PRN (22:39)
[2018-04-13] MEDS: diazePAM 5 MG TABLET PO PRN (06:21)
[2018-04-13] MEDS ORDERED: METHADONE HCL 5 MG TABLET (FOR DETOX USE ONLY) PO SCH (10:00)
[2018-04-13] MEDS: PRENATAL VITAMINS W/ FOLIC ACID TABLET (FP) PO SCH (10:57)
[2018-04-13] MEDS: diazePAM 5 MG TABLET PO SCH ×2 (10:57→22:19)
--- NOTE | 2018-04-13 12:56 | CONSULT ---
[facility] Psychiatric Consult - Data Date of interview: 04/13/18 Admission source: [facility] Identifying data: Patient is a 67 y/o male single, domiciled, unemployed, no children on SSI. This is his [address] adnmission to [facility] Substance Abuse History: Here for Klonopin and heroin use. IVDA use heroin daily and street Klonopin 8 mg po daiy. He expalined that he has been on Methadone treatment on and off. Please refer to addiction counselor note for more detailed substance use history Medical History: He has no active medical problem. Past surgical history of appendectomy, Cholecystectomy and hernioraphy Psychiatric History: None Physical/Sexual Abuse/Trauma History: Denied Additional Comment: He reports prior trouble with the law for heroin drug use Mental Status Exam - Mental Status Exam Alert and Oriented to: Place, Person Cognitive Function: Grossly Intact Patient Appearance: Well Groomed Mood: Anxious Affect: Appropriate Patient Behavior: Appropriate, Cooperative Speech Pattern: Clear, Appropriate Voice Loudness: Normal Thought Process: Intact Hallucinations: Denies Suicidal Ideation: Denies Homicidal Ideation: Denies Insight/Judgement: Poor Sleep: Poorly Appetite: Fair Muscle strength/Tone: Normal Gait/Station: Normal Psychiatric Findings - Problem List ([place] 1, 2,3) (1) Opioid dependence with withdrawal Current Visit: No Status: Acute (2) Nicotine dependence Current Visit: No Status: Chronic Qualifiers: Nicotine product type: cigarettes Substance use status: uncomplicated Qualified Code(s): F17.210 - Nicotine dependence, cigarettes, uncomplicated (3) Sedative, hypnotic or anxiolytic dependence with withdrawal, uncomplicated Current Visit: No Status: Chronic - Initial Treatment Plan Initial Treatment Plan: Continue in patient deytox treatment. Psychoeductaion. Seroquel 100 mg po q hs. Monitor response
[2018-04-13] MEDS: NICOTINE POLACRILEX 2 MG GUM BC PRN ×2 (13:27→17:13)
--- NOTE | 2018-04-13 15:05 | PN ---
[facility] COWS - Scale Resting Pulse: 0= [place] 80 or Below Sweatin= Chills/Flushing Restless Observation: 1= Difficult to Sit Still Pupil Size: 1= Pupils >than Normal Bone or Joint Aches: 1= Mild Discomfort Runny Nose/ Eye Tearin= Nasal Congestion GI Upset > 30mins: 2= Nausea/Diarrhea Tremor Observation of Outstretched Hands: 2= Slight Tremor Visible Yawning Observation: 1= 1-2x During Session Anxiety or Irritability: 1=Feels Anxious/Irritable Goose Flesh Skin: 0=Smooth Skin COWS Score: 11 [facility] Progress Note (SOAP) Subjective: restlessness trouble sleep at night anxiety tremor sweat Objective: 04/13/18 15:08 Vital Signs Temperature 97.7 F 04/13/18 14:32 Pulse Rate 51 L 04/13/18 14:32 Respiratory Rate 16 04/13/18 14:32 Blood Pressure 133/74 04/13/18 14:32 O2 Sat by Pulse Oximetry (%) Laboratory Last Values WBC 5.1 K/mm3 (4.0-10.0) 04/12/18 08:00 RBC 4.58 M/mm3 (4.00-5.60) 04/12/18 08:00 Hgb 15.0 GM/dL (11.7-16.9) 04/12/18 08:00 Hct 42.5 % (35.4-49) 04/12/18 08:00 MCV 92.9 fl (80-96) 04/12/18 08:00 MCH 32.8 pg (25.7-33.7) 04/12/18 08:00 MCHC 35.3 g/dl (32.0-35.9) 04/12/18 08:00 RDW 14.0 % (11.9-15.9) 04/12/18 08:00 Plt Count 147 K/MM3 (134-434) D 04/12/18 08:00 MPV 8.8 fl (7.5-11.1) 04/12/18 08:00 Sodium 139 mmol/L (136-145) 04/12/18 08:00 Potassium 4.9 mmol/L (3.5-5.1) 04/12/18 08:00 Chloride 106 mmol/L (98-107) 04/12/18 08:00 Carbon Dioxide 27 mmol/L (21-32) 04/12/18 08:00 Anion Gap 6 MMOL/L (8-16) L 04/12/18 08:00 BUN 23 mg/dL (7-18) H 04/12/18 08:00 Creatinine 1.3 mg/dL (0.55-1.3) 04/12/18 08:00 Creat Clearance w eGFR 55.06 (>60) 04/12/18 08:00 Random Glucose 87 mg/dL (74-106) 04/12/18 08:00 Calcium 8.9 mg/dL (8.5-10.1) 04/12/18 08:00 Total Bilirubin 0.5 mg/dL (0.2-1) 04/12/18 08:00 AST 18 U/L (15-37) 04/12/18 08:00 ALT 20 U/L (13-61) 04/12/18 08:00 Alkaline Phosphatase 45 U/L (45-117) 04/12/18 08:00 Total Protein 6.8 g/dl (6.4-8.2) 04/12/18 08:00 Albumin 3.4 g/dl (3.4-5.0) 04/12/18 08:00 Urine Color Yellow 04/11/18 23:49 Urine Appearance Slcloudy 04/11/18 23:49 Urine pH 6.0 (5.0-8.0) 04/11/18 23:49 Ur Specific [place] 1.018 (1.010-1.035) 04/11/18 23:49 Urine Protein Negative (NEGATIVE) 04/11/18 23:49 Urine Glucose (UA) Negative (NEGATIVE) 04/11/18 23:49 Urine Ketones Negative (NEGATIVE) 04/11/18 23:49 Urine Blood Negative (NEGATIVE) 04/11/18 23:49 Urine Nitrite Negative (NEGATIVE) 04/11/18 23:49 Urine Bilirubin Negative (<2.0 mg/dL) 04/11/18 23:49 Urine Urobilinogen Negative mg/dL (0.2-1.0) 04/11/18 23:49 Ur Leukocyte Esterase Negative (NEGATIVE) 04/11/18 23:49 RPR Titer Nonreactive (NONREACTIVE) 04/12/18 08:00 lab noted Assessment: 04/13/18 15:08 withdrawal sx Plan: continue detox
[2018-04-13] MEDS ORDERED: QUEtiapine FUMARATE 100 MG TABLET (FP) PO SCH (22:00)
[2018-04-13] MEDS: THIAMINE HCL 100 MG TABLET (FP) PO SCH (22:19)
[2018-04-14] MEDS ORDERED: METHADONE HCL 10 MG TABLET (FOR DETOX USE ONLY) PO SCH (10:00)
[2018-04-14] MEDS: PRENATAL VITAMINS W/ FOLIC ACID TABLET (FP) PO SCH (10:42)
[2018-04-14] MEDS: diazePAM 5 MG TABLET PO SCH ×2 (10:43→22:10)
[2018-04-14] MEDS: NICOTINE POLACRILEX 2 MG GUM BC PRN (10:43)
--- NOTE | 2018-04-14 10:44 | PN ---
[facility] Progress Note (SOAP) Subjective: feeling better no tremor less sweat no gi distress social with peers in day room Objective: 04/14/18 10:49 Vital Signs Temperature 97.7 F 04/14/18 09:27 Pulse Rate 79 04/14/18 09:27 Respiratory Rate 18 04/14/18 09:27 Blood Pressure 139/89 04/14/18 09:27 O2 Sat by Pulse Oximetry (%) Laboratory Last Values WBC 5.1 K/mm3 (4.0-10.0) 04/12/18 08:00 RBC 4.58 M/mm3 (4.00-5.60) 04/12/18 08:00 Hgb 15.0 GM/dL (11.7-16.9) 04/12/18 08:00 Hct 42.5 % (35.4-49) 04/12/18 08:00 MCV 92.9 fl (80-96) 04/12/18 08:00 MCH 32.8 pg (25.7-33.7) 04/12/18 08:00 MCHC 35.3 g/dl (32.0-35.9) 04/12/18 08:00 RDW 14.0 % (11.9-15.9) 04/12/18 08:00 Plt Count 147 K/MM3 (134-434) D 04/12/18 08:00 MPV 8.8 fl (7.5-11.1) 04/12/18 08:00 Sodium 139 mmol/L (136-145) 04/12/18 08:00 Potassium 4.9 mmol/L (3.5-5.1) 04/12/18 08:00 Chloride 106 mmol/L (98-107) 04/12/18 08:00 Carbon Dioxide 27 mmol/L (21-32) 04/12/18 08:00 Anion Gap 6 MMOL/L (8-16) L 04/12/18 08:00 BUN 23 mg/dL (7-18) H 04/12/18 08:00 Creatinine 1.3 mg/dL (0.55-1.3) 04/12/18 08:00 Creat Clearance w eGFR 55.06 (>60) 04/12/18 08:00 Random Glucose 87 mg/dL (74-106) 04/12/18 08:00 Calcium 8.9 mg/dL (8.5-10.1) 04/12/18 08:00 Total Bilirubin 0.5 mg/dL (0.2-1) 04/12/18 08:00 AST 18 U/L (15-37) 04/12/18 08:00 ALT 20 U/L (13-61) 04/12/18 08:00 Alkaline Phosphatase 45 U/L (45-117) 04/12/18 08:00 Total Protein 6.8 g/dl (6.4-8.2) 04/12/18 08:00 Albumin 3.4 g/dl (3.4-5.0) 04/12/18 08:00 Urine Color Yellow 04/11/18 23:49 Urine Appearance Slcloudy 04/11/18 23:49 Urine pH 6.0 (5.0-8.0) 04/11/18 23:49 Ur Specific [place] 1.018 (1.010-1.035) 04/11/18 23:49 Urine Protein Negative (NEGATIVE) 04/11/18 23:49 Urine Glucose (UA) Negative (NEGATIVE) 04/11/18 23:49 Urine Ketones Negative (NEGATIVE) 04/11/18 23:49 Urine Blood Negative (NEGATIVE) 04/11/18 23:49 Urine Nitrite Negative (NEGATIVE) 04/11/18 23:49 Urine Bilirubin Negative (<2.0 mg/dL) 04/11/18 23:49 Urine Urobilinogen Negative mg/dL (0.2-1.0) 04/11/18 23:49 Ur Leukocyte Esterase Negative (NEGATIVE) 04/11/18 23:49 RPR Titer Nonreactive (NONREACTIVE) 04/12/18 08:00 lab noted Assessment: 04/14/18 10:50 mild withdrawal sx Plan: medically supervised detox
--- NOTE | 2018-04-14 12:21 | PN ---
Psychiatric Progress Note Vital Signs: Vital Signs Period Temp Pulse Resp BP Sys/Batista Pulse Ox Last 24 Hr 97.5 F-98.2 F 50-79 16-19 122-145/74-89 Date of Session: 04/14/18 Chief Complaint:: Insomnia HPI: Patien reports taking prior to admission Seroquel 2900mg po qhs Current Medications: Active Medications Generic Name Dose Route Start Last Admin Trade Name Freq PRN Reason Stop Dose Admin Acetaminophen 650 mg 04/11/18 18:25 Tylenol - PO Q4H PRN FEVER Al Hydroxide/Mg Hydroxide 30 ml 04/11/18 18:25 Mylanta Oral Suspension - PO Q6H PRN DYSPEPSIA Diazepam 5 mg 04/13/18 10:00 04/14/18 10:43 Valium - PO 04/14/18 22:01 5 mg BID BONNIE Administration Diazepam 5 mg 04/15/18 10:00 Valium - PO 04/15/18 10:01 DAILY BONNIE Diazepam 5 mg 04/11/18 18:25 04/13/18 06:21 Valium - PO 04/14/18 18:25 5 mg Q4H PRN Administration WITHDRAWAL(CONT SUBST) Eucalyptus/Menthol/Phenol/Sorbitol 1 each 04/11/18 18:25 Cepastat Lozenge - MM Q4H PRN SORE THROAT Guaifenesin 10 ml 04/11/18 18:25 Robitussin Dm - PO Q6H PRN COUGH Ibuprofen 400 mg 04/11/18 18:25 Motrin - PO Q6H PRN PAIN LEVEL 4-6 Magnesium Citrate 300 ml 04/11/18 18:25 Citroma - PO Q48H PRN CONSTIPATION Magnesium Hydroxide 30 ml 04/11/18 18:25 Milk Of Magnesia - PO DAILY PRN CONSTIPATION Melatonin 5 mg 04/11/18 22:00 04/12/18 22:24 Melatonin PO 5 mg HS PRN Administration INSOMNIA Methadone HCl 5 mg 04/15/18 06:00 Dolophine - PO 04/15/18 06:01 DAILY@0600 BONNIE Nicotine Polacrilex 2 mg 04/11/18 18:25 04/14/18 10:43 Nicorette Gum - BC 2 mg Q2H PRN Administration NICOTINE REPLACEMENT RX Multivit/Folic Acid/Iron 1 tab 04/12/18 10:00 04/14/18 10:42 Vitamins (Sjr) - PO 1 tab DAILY BONNIE Administration Pseudoephedrine/Triprolidine 1 combo 04/11/18 18:25 Actifed - PO TID PRN NASAL CONGESTION Quetiapine Fumarate 100 mg 04/13/18 22:00 04/13/18 22:19 Seroquel - PO 100 mg HS BONNIE Administration Thiamine HCl 100 mg 04/11/18 22:00 04/13/18 22:19 Vitamin B1 - PO 100 mg HS BONNIE Administration Medication(s) Change(s): Seroquel 2900mg po qhs Mental Status Exam - Mental Status Exam Alert and Oriented to: Person Cognitive Function: Fair Patient Appearance: Well Groomed Mood: Anxious Affect: Mood Congruent Patient Behavior: Cooperative Speech Pattern: Appropriate Voice Loudness: Normal Thought Process: Goal Oriented Thought Disorder: Being Controlled Hallucinations: Denies Suicidal Ideation: Denies Homicidal Ideation: Denies Insight/Judgement: Fair Sleep: Difficulty falling asleep Appetite: Weight loss Muscle strength/Tone: Normal Gait/Station: Shuffling Additional Comments: Seroquel 2900mg po qhs Psychiatric Treatment Plan - Problem List (1) Opioid dependence with withdrawal Current Visit: No (2) Weight loss Current Visit: No (3) Asthma Current Visit: No Qualifiers: Asthma severity: mild intermittent Asthma complication type: with status asthmaticus (4) Hepatitis C antibody test positive Current Visit: No (5) Nicotine dependence Current Visit: No Qualifiers: Nicotine product type: cigarettes Substance use status: uncomplicated Qualified Code(s): F17.210 - Nicotine dependence, cigarettes, uncomplicated (6) Sedative, hypnotic or anxiolytic dependence with withdrawal, uncomplicated Current Visit: No (7) Bronchitis Current Visit: No Initial treatment plan: Seroquel 2900mg po qhs
[2018-04-14] MEDS ORDERED: NICOTINE 21 MG/24 HOURS TOPICAL PATCH TD SCH (12:30)
[2018-04-14] MEDS ORDERED: QUEtiapine FUMARATE 200 MG TABLET PO SCH (22:00)
[2018-04-14] MEDS: THIAMINE HCL 100 MG TABLET (FP) PO SCH (22:07)
[2018-04-15] MEDS ORDERED: METHADONE HCL 5 MG TABLET (FOR DETOX USE ONLY) PO SCH (06:00)
[2018-04-15 06:17] VITALS: BP 111/89; PULSE 111; TEMP 98
--- NOTE | 2018-04-15 09:10 | DS ---
[facility] Detox Discharge Summary Admission Date: 04/11/18 Discharge Date: 04/15/18 - History Present History: Opioid Dependence, Sedative Dependence Additional Comments: 67 years old male admitted on 04/11/18 for benzo and opiate withdrawal sx completed detoix regimen tolerated well denies benzo and opiate withdrawal sx alert oriented x 3 no acute distress aftercare [facility] - Physical Exam Results Vital Signs: Vital Signs Temperature 98 F 04/15/18 06:16 Pulse Rate 111 H 04/15/18 06:16 Respiratory Rate 16 04/15/18 06:16 Blood Pressure 111/89 04/15/18 06:16 O2 Sat by Pulse Oximetry (%) Pertinent Admission Physical Exam Findings: benzo and opiate withdrawal sx Vital Signs Temperature 98 F 04/15/18 06:16 Pulse Rate 111 H 04/15/18 06:16 Respiratory Rate 16 04/15/18 06:16 Blood Pressure 111/89 04/15/18 06:16 O2 Sat by Pulse Oximetry (%) Laboratory Tests 04/11/18 04/12/18 04/12/18 23:49 08:00 08:00 WBC 5.1 RBC 4.58 Hgb 15.0 Hct 42.5 MCV 92.9 MCH 32.8 MCHC 35.3 RDW 14.0 Plt Count 147 D MPV 8.8 Sodium 139 Potassium 4.9 Chloride 106 Carbon Dioxide 27 Anion Gap 6 L BUN 23 H Creatinine 1.3 Creat Clearance w eGFR 55.06 Random Glucose 87 Calcium 8.9 Total Bilirubin 0.5 AST 18 ALT 20 Alkaline Phosphatase 45 Total Protein 6.8 Albumin 3.4 Urine Color Yellow Urine Appearance Slcloudy Urine pH 6.0 Ur Specific [place] 1.018 Urine Protein Negative Urine Glucose (UA) Negative Urine Ketones Negative Urine Blood Negative Urine Nitrite Negative Urine Bilirubin Negative Urine Urobilinogen Negative Ur Leukocyte Esterase Negative RPR Titer 04/12/18 08:00 WBC RBC Hgb Hct MCV MCH MCHC RDW Plt Count MPV Sodium Potassium Chloride Carbon Dioxide Anion Gap BUN Creatinine Creat Clearance w eGFR Random Glucose Calcium Total Bilirubin AST ALT Alkaline Phosphatase Total Protein Albumin Urine Color Urine Appearance Urine pH Ur Specific [place] Urine Protein Urine Glucose (UA) Urine Ketones Urine Blood Urine Nitrite Urine Bilirubin Urine Urobilinogen Ur Leukocyte Esterase RPR Titer Nonreactive lab oted - Treatment Hospital Course: Detox Protocol Followed, Detoxed Safely, Responded well, Discharged Condition Good, Rehab Referral Accepted Patient has Accepted a Rehab Referral to: [facility] - Medication Discharge Medications: Ambulatory Orders Enalapril Maleate [Vasotec] 5 mg PO DAILY 04/14/18 - Diagnosis (1) Opioid dependence with withdrawal Status: Acute (2) Weight loss Status: Acute (3) Asthma Status: Chronic Qualifiers: Asthma severity: mild Asthma persistence: intermittent Asthma complication type: with status asthmaticus Qualified Code(s): J45.22 - Mild intermittent asthma with status asthmaticus (4) Hepatitis C antibody test positive Status: Chronic (5) Nicotine dependence Status: Acute Qualifiers: Nicotine product type: cigarettes Substance use status: in withdrawal Qualified Code(s): F17.213 - Nicotine dependence, cigarettes, with withdrawal (6) Sedative, hypnotic or anxiolytic dependence with withdrawal, uncomplicated Status: Acute - AMA Did Patient Leave Against Medical Advice: No
[2018-04-15] MEDS ORDERED: diazePAM 5 MG TABLET PO SCH (10:00)
== END 2018-04-15 09:47 | disposition home or self-care (01) | DRG 897 ==
LOC: YASAS 13:38 → Y6N 17:46
PROC: HZ2ZZZZ Detoxification Services for Substance Abuse Treatment (ICD-10-PCS; principal; 2018-04-11)
DX: F11.23 Opioid dependence with withdrawal (principal); J45.22 Mild intermittent asthma with status asthmaticus; F13.230 Sedative, hypnotic or anxiolytic dependence with withdrawal, uncomplicated; F17.213 Nicotine dependence, cigarettes, with withdrawal; B18.2 Chronic viral hepatitis C; J20.9 Acute bronchitis, unspecified; R00.1 Bradycardia, unspecified; Z87.898 Personal history of other specified conditions
CPT/HCPCS: 36415; 80053; 81003; 85027; 86593; 93005; 93010